=== PATIENT | female | born 1975 | race Two or more races ===

== ENCOUNTER 2018-06-13 14:58 | Outpatient (CLI) | payer OTHER | END 2018-06-13 15:10 | disposition home or self-care (01) | LOC: RAD 501 14:58 | DX: S90.31XA Contusion of right foot, initial encounter (principal) ==

== ENCOUNTER → 2018-08-15 | Outpatient (CLI) | payer OTHER | END | disposition home or self-care (01) | LOC: RAD 501 14:00 | DX: S92.354D Nondisplaced fracture of fifth metatarsal bone, right foot, subsequent encounter for fracture with routine healing (principal) ==